=== PATIENT | female | born 1975 | race Caucasian/White ===

== ENCOUNTER 2018-01-13 20:21 | Emergency (ER) | payer SELFPAY ==
[~2018-01-13] VITALS: Ht 162.6 cm; Wt 63.6 kg
[2018-01-13 22:08] LABS: BASOPHILS % (AUTO) 0.4 % (0.0-2.0); EOSINOPHILS % (AUTO) 0.8 % (1.0-6.0); HEMOGLOBIN 13.6 g/dL (12.0-16.0); LYMPHOCYTES # (AUTO) 2.4 K/uL (1.0-4.8); LYMPHOCYTES % (AUTO) 29.8 % (22.0-44.0); MEAN CORPUSCULAR HEMOGLOBIN 31.5 pg (26.0-34.0); MEAN CORPUSCULAR HGB CONC 34.1 G/dL (31.0-37.0); MEAN CORPUSCULAR VOLUME 92 fL (80-100); MONOCYTES # (AUTO) 0.7 K/uL (0.1-1.0); MONOCYTES % (AUTO) 8.9 % (2.0-9.0); NEUTROPHILS # (AUTO) 4.9 K/uL (1.8-7.7); NEUTROPHILS % (AUTO) 60.1 % (40.0-70.0); PLATELET COUNT (AUTO) 279 K/uL (150-450); RED BLOOD CELL COUNT(AUTO) 4.32 MIL/uL (4.00-5.20); RED CELL DISTRIBUTION WIDTH 13.4 % (11.5-14.5)
[2018-01-13 22:17] LABS: ANION GAP 4 mmol/L (8-16); CALCIUM, TOTAL 8.8 mg/dL (8.8-10.5); CARBON DIOXIDE 30 mmol/L (22-29); CHLORIDE 104 mmol/L (98-107); CREATININE 0.96 mg/dL (0.60-1.30); GLOMERULAR FILTR. RATE CALC > 60 mL/min (>60); GLUCOSE,RANDOM 88 mg/dL (70-110); POTASSIUM 3.6 mmol/L (3.5-5.1); SODIUM SERUM 138 mmol/L (136-145); UREA NITROGEN, BLOOD 22 mg/dL (7-18)
[2018-01-13 22:22] LABS: ALANINE AMINOTRANSFERASE 23 U/L (12-78); ALBUMIN 4.1 g/dL (3.4-5.0); ALKALINE PHOSPHATASE 71 U/L (46-116); ASPARTATE AMINOTRANSFERASE 16 U/L (15-37); BILIRUBIN,TOTAL 0.6 mg/dL (0.1-1.0); TOTAL PROTEIN, SERUM 7.7 g/dL (6.4-8.2)
[2018-01-13 22:51] LABS: PLATELET MORPHOLOGY COMMENT LARGE PLTS PRESENT
[2018-01-14 04:08] VITALS: BP 126/71
== END 2018-01-14 04:16 | disposition home or self-care (01) ==
LOC: EMS 20:22
DX: N93.8 Other specified abnormal uterine and vaginal bleeding (principal); R42 Dizziness and giddiness
CPT/HCPCS: 99284

== ENCOUNTER 2018-05-01 16:45 | Emergency (ER) | payer OTHER ==
[~2018-05-01] VITALS: Ht 154.9 cm; Wt 62.7 kg
[2018-05-01] MEDS ORDERED: HIV MED (16:50)
[2018-05-01] MEDS ORDERED: [UNRECOGNIZED DRUG - OTHER] (16:50)
[2018-05-01] MEDS ORDERED: IBUPROFEN 600 MG TABLET PO ONE (20:00)
[2018-05-01 20:23] VITALS: BP 124/80
== END 2018-05-01 21:01 | disposition home or self-care (01) ==
LOC: EMS 16:46
DX: M79.622 Pain in left upper arm (principal); T36.0X5A Adverse effect of penicillins, initial encounter; R03.0 Elevated blood-pressure reading, without diagnosis of hypertension; Z88.0 Allergy status to penicillin; Y92.89 Other specified places as the place of occurrence of the external cause
CPT/HCPCS: 87070; 87205; 99283; 99284

== ENCOUNTER 2019-01-18 11:54 | Emergency (ER) | payer OTHER ==
[~2019-01-18] VITALS: Ht 162.6 cm; Wt 63.6 kg
[~2019-01-18 11:54] MED LIST: HIV MED; [UNRECOGNIZED DRUG - OTHER]
[2019-01-18] MEDS ORDERED: SULFAMETHOX/TRIMETH DS 800-160 MG/TABLET PO ONE (14:45)
[2019-01-18] MEDS ORDERED: CEPHALEXIN MONOHYDRATE 500 MG CAPSULE PO ONE (14:45)
[2019-01-18] MEDS ORDERED: LIDOCAINE/PF 1% 5 ML VIAL INJ ONE (14:45)
[2019-01-18] MEDS ORDERED: ACETAMINOPHEN 500 MG TABLET PO ONE (14:45)
[2019-01-18 15:54] VITALS: BP 132/68
== END 2019-01-18 15:54 | disposition home or self-care (01) ==
LOC: EMS 11:54
DX: L72.0 Epidermal cyst (principal)
CPT/HCPCS: 10060; 99284; J3490